=== PATIENT | female | born 1965 | race African-American/Black ===

== ENCOUNTER 2016-08-23 10:13 | Inpatient (IN) | payer OTHER ==
[2016-08-23 10:39] VITALS: BMI 30.7
--- NOTE | 2016-08-23 11:11 | HP ---
CIWA Score - CIWA Score Nausea/Vomitin Muscle Tremors: 3 Anxiety: 3 Agitation: 3 Paroxysmal Sweats: 2 Orientation: 0-Oriented Tacttile Disturbances: 2-Mild Itch/Numbness/Burn Auditory Disturbances: 2-Mild Harshness/Frighten Visual Disturbances: 2-Mild Sensitivity Headache: 2-Mild CIWA-Ar Total Score: 22 Admission ROS [facility] - HPI Chief Complaint: i need help to stop drinking alcohol,cocaine,heroin abused,withdrawal symptom, last detox 2012 asthma mmtp 40 mgs/day,last medicated today nicotine dependence sobriety longest 3 years Allergies/Adverse Reactions: Allergies Allergy/AdvReac Type Severity Reaction Status Date / Time Penicillins Allergy Severe Difficulty Verified 08/23/16 10:44 Breathing shellfish derived Allergy Severe Difficulty Verified 08/23/16 10:44 Breathing History of Present Illness: this 51 years old female with alcohol,cocaine dependence,heroin abused for detox as mentioned Exam Limitations: No Limitations - Ebola screening Have you traveled outside of the country in the last 21 days: No Have you had contact with anyone from an Ebola affected area: No Have you been sick,other than usual withdrawal symptoms: No - Review of Systems Constitutional: Malaise, Night Sweats, Changes in sleep EENT: reports: Tearing, Nose Congestion Respiratory: reports: Other (asthma) Cardiac: reports: No Symptoms Reported GI: reports: Diarrhea, Nausea, Vomiting, Abdominal cramping : reports: No Symptoms Reported Musculoskeletal: reports: Back Pain, Joint Pain, Muscle Pain Integumentary: reports: Dryness Neuro: reports: Headache, Tremors Endocrine: reports: No Symptoms Reported Hematology: reports: No Symptoms Reported Psychiatric: reports: No Sypmtoms Reported Patient History - Patient Medical History Hx Anemia: No Hx Asthma: Yes (on albuterol inhaler) Hx Chronic Obstructive Pulmonary Disease (COPD): No Hx Cancer: No Hx Cardiac Disorders: No Hx Congestive Heart Failure: No Hx Hypertension: No Hx Hypercholesterolemia: No Hx Pacemaker: No HX Cerebrovascular Accident: No Hx Seizures: No Hx Dementia: No Hx Diabetes: No Hx Gastrointestinal Disorders: No Hx Liver Disease: No Hx Genitourinary Disorders: No Hx Sexually Transmitted Disorders: No Hx Renal Disease (ESRD): No Hx Thyroid Disease: No Hx Human Immunodeficiency Virus (HIV): No (last 2014 negative) Hx Hepatitis C: No Hx Depression: No Hx Suicide Attempt: No Hx Bipolar Disorder: No Hx Schizophrenia: No Other Medical History: no suicidal,no homicidal,lichen planus both legs - Patient Surgical History Past Surgical History: No - PPD History Previous Implant?: Yes Documented Results: Negative w/o proof Implanted On Prior R Admission?: No PPD to be Administered?: Yes - Reproductive History Patient is a Female of Child Bearing Age (11 -55 yrs old): Yes Patient : No - Smoking Cessation Smoking history: Current every day smoker Have you smoked in the past 12 months: Yes Aproximately how many cigarettes per day: 2 Hx Chewing Tobacco Use: No Initiated information on smoking cessation: Yes 'Breaking Loose' booklet given: 08/23/16 - Substance & Tx. History Hx Alcohol Use: Yes Hx Substance Use: Yes Substance Use Type: Alcohol, Cocaine, Heroin Hx Substance Use Treatment: Yes (2013 did not recall the location) - Substances Abused Alcohol Route: Oral Frequency: Daily Amount used: 1/2 [place]/ 5 BEERS Age of first use: 14 Date of Last Use: 08/22/16 Cocaine Route: Smoking Frequency: Daily Amount used: $20 Age of first use: 23 Date of Last Use: 08/21/16 Heroin Route: Inhalation Frequency: 3-6 times per week Amount used: 2-4 BAGS Age of first use: 18 Date of Last Use: 08/22/16 Family Disease History - Family Disease History Family Disease History: Other: Father (alcohol), Mother (alcohol) Admission Physical Exam [facility] - Vital Signs Vital Signs: Vital Signs - 24 hr 08/23/16 10:32 Temperature 96.4 F L Pulse Rate 68 Respiratory 18 Rate Blood Pressure 140/91 - Physical General Appearance: Yes: Moderate Distress, Tremorous, Irritable, Sweating, Anxious HEENTM: Yes: Nasal Congestion, Rhinorrhea Respiratory: Yes: Lungs Clear Neck: Yes: Within Normal Limits Breast: Yes: Breast Exam Deferred Cardiology: Yes: Within Normal Limits, Regular Rhythm, Regular Rate, S1, S2 Abdominal: Yes: Within Normal Limits, Normal Bowel Sounds, Non Tender, Flat, Soft Genitourinary: Yes: Within Normal Limits Back: Yes: Muscle Spasm Musculoskeletal: Yes: Back pain, Muscle Pain Extremities: Yes: Tremors Neurological: Yes: stone circular 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 II-XII NML intact, Fully Oriented, Alert, Motor Strength 5/5 Integumentary: Yes: Dry Lymphatic: Yes: Within Normal Limits - Diagnostic (1) Alcohol dependence with uncomplicated withdrawal Current Visit: Yes Status: Acute (2) Cocaine dependence Current Visit: Yes Status: Acute (3) Methadone maintenance therapy patient Current Visit: Yes Status: Acute (4) Heroin abuse Current Visit: Yes Status: Acute (5) Asthma Current Visit: Yes Status: Acute (6) Lichen planus Current Visit: Yes Status: Acute Cleared for Admission [facility] - Detox or Rehab [facility] Level of Care: Medically Managed Detox Regimen/Protocol: Librium [facility] Breath Alcohol Content Breath Alcohol Content: 0 Urine Pregancy Test - Result Urine Test Results: Negative- NO Line Present Urine Drug Screen - Results Drug Screen Negative: No Urine Drug Screen Results: LUIS ENRIQUE-Cocaine, OPI-Opiates, MTD-Methadone
[2016-08-23] MEDS ORDERED: P-EPHED 60MG/TRIPROLIDI 2.5MG TABLET PO PRN (11:29)
[2016-08-23] MEDS ORDERED: hydrOXYzine PAMOATE 50 MG CAPSULE (FP) PO PRN (11:29)
[2016-08-23] MEDS ORDERED: guaiFENesin/D-METHORPHAN HB 10 ML UNIT-DOSE CUPS PO PRN (11:29)
[2016-08-23] MEDS ORDERED: diphenhydrAMINE HCL 50 MG CAPSULE PO PRN (11:29)
[2016-08-23] MEDS ORDERED: MAGNESIUM HYDROX 2400MG/30ML ORAL SUSPENSION 30 ML CUP PO PRN (11:29)
[2016-08-23] MEDS ORDERED: LOPERAMIDE HCL 2 MG CAPSULE PO PRN (11:29)
[2016-08-23] MEDS ORDERED: ACETAMINOPHEN 325 MG TABLET (FP) PO PRN (11:29)
[2016-08-23] MEDS ORDERED: MAG HYDROX/AL HYDROX/SIMETH 30 ML UNIT-DOSE CUP PO PRN (11:29)
[2016-08-23] MEDS ORDERED: IBUPROFEN 400 MG TABLET (FP) PO PRN (11:29)
[2016-08-23] MEDS ORDERED: MENTHOL/PHENOL 1 EACH UD MM PRN (11:29)
[2016-08-23] MEDS ORDERED: MAGNESIUM CITRATE 300 ML BOTTLE PO PRN (11:29)
[2016-08-23] MEDS ORDERED: chlordiazePOXIDE HCL 25 MG CAPSULE PO PRN (11:29)
[2016-08-23] MEDS ORDERED: ALBUTEROL SO4 6.7 GM HFA INHALER IH PRN (11:32)
[2016-08-23] MEDS ORDERED: chlordiazePOXIDE HCL 25 MG CAPSULE PO ONE (12:03)
[2016-08-23 15:02] LABS: HIV 1 & 2 AB NEGATIVE; HIV 1 AGp24 NEGATIVE
[2016-08-23] MEDS: chlordiazePOXIDE HCL 25 MG CAPSULE PO SCH ×2 (17:46→22:28)
[2016-08-23 19:58] LABS: URINE APPEARANCE SLCLOUDY; URINE BILIRUBIN NEGATIVE (NEGATIVE); URINE BLOOD NEGATIVE (NEGATIVE); URINE COLOR LTYELLOW; URINE GLUCOSE (UA) NEGATIVE (NEGATIVE); URINE KETONE NEGATIVE (NEGATIVE); URINE NITRITE NEGATIVE (NEGATIVE); URINE PROTEIN NEGATIVE (NEGATIVE); URINE UROBILINOGEN NEGATIVE E.U./dl (0.2-1.0)
[2016-08-23 20:01] LABS: URINE LEUK ESTERASE 1+ (NEGATIVE)
[2016-08-23 20:08] LABS: CALCIUM OXALATE CRYSTALS FEW /hpf (NONE SEEN); URINE MUCUS RARE; URINE RBC 2 /hpf (0-3); URINE WBC 3 /hpf (3-5)
[2016-08-23] MEDS: THIAMINE HCL 100 MG TABLET (FP) PO SCH (22:27)
[2016-08-23] MEDS: MINERAL OIL/PETROLAT/WATER TOPICAL CREAM 113 GM JAR TP SCH (22:28)
[2016-08-24] MEDS: chlordiazePOXIDE HCL 25 MG CAPSULE PO SCH ×4 (06:09→22:38)
[2016-08-24] MEDS: METHADONE HCL 40 MG DISPERSABLE TABLET PO SCH (06:09)
[2016-08-24 10:35] LABS: MCH 28.8 pg (25.7-33.7); MEAN CELL VOLUME 87.3 fl (80-96); MEAN PLT VOLUME 9.9 fl (7.5-11.1); PLATELET COUNT 195 K/MM3 (134-434); RDW 14.3 % (11.6-15.6); WHITE BLOOD COUNT 6.2 K/mm3 (4.0-10.0)
--- NOTE | 2016-08-24 10:35 | EKG ---
Test Reason : Blood Pressure : / mmHG Vent. Rate : 062 BPM Atrial Rate : 062 BPM P-R Int : 142 ms QRS Dur : 074 ms QT Int : 414 ms P-R-T Axes : 070 050 036 degrees QTc Int : 420 ms NORMAL SINUS RHYTHM NORMAL ECG NO PREVIOUS ECGS AVAILABLE Confirmed by KEVIN VEE MD ([id number]) on 08/24/2016 10:35:15 AM Referred By: Vel Palmer Confirmed By:KEVIN VEE MD
[2016-08-24 10:48] LABS: ANION GAP 8 (8-16); CALCIUM 9.2 mg/dL (8.5-10.1); CO2 31 mmol/L (21-32); GLUCOSE,RANDOM 91 mg/dL (74-106)
[2016-08-24] MEDS: PRENATAL VITAMINS W/ FOLIC ACID TABLET (FP) PO SCH (10:49)
[2016-08-24] MEDS: MINERAL OIL/PETROLAT/WATER TOPICAL CREAM 113 GM JAR TP SCH ×2 (10:49→22:38)
[2016-08-24 10:52] LABS: ALK PHOS 121 U/L (45-117); BILIRUBIN,TOTAL 0.3 mg/dL (0.2-1.0); CREATININE 0.9 mg/dL (0.55-1.02); SGOT/AST 15 U/L (15-37); SGPT/ALT 23 U/L (12-78); TOT PROT 7.5 g/dl (6.4-8.2)
--- NOTE | 2016-08-24 13:37 | PN ---
S CIWA - CIWA Score Nausea/Vomitin Muscle Tremors: 3 Anxiety: 3 Agitation: 3 Paroxysmal Sweats: 2 Orientation: 0-Oriented Tacttile Disturbances: 1-Very Mild Itch/Numbness Auditory Disturbances: 1-Very Mild Visual Disturbances: 1-Very Mild Sensitivity Headache: 2-Mild CIWA-Ar Total Score: 19 S Progress Note (SOAP) Subjective: ALERT,IRRITABLE,ANXIOUS,INTERRUPTED SLEEP,TREMOR,PAIN IN THE BODY Objective: 08/24/16 13:35 Vital Signs Temperature 98.4 F 08/24/16 09:48 Pulse Rate 83 08/24/16 09:48 Respiratory Rate 18 08/24/16 09:48 Blood Pressure 109/67 08/24/16 09:48 O2 Sat by Pulse Oximetry (%) 08/24/16 13:35 EKG NSR 08/24/16 13:35 Laboratory Last Values WBC 6.2 K/mm3 (4.0-10.0) 08/24/16 06:00 RBC 4.40 M/mm3 (3.60-5.2) 08/24/16 06:00 Hgb 12.7 GM/dL (10.7-15.3) 08/24/16 06:00 Hct 38.4 % (32.4-45.2) 08/24/16 06:00 MCV 87.3 fl (80-96) 08/24/16 06:00 MCHC 33.0 g/dl (32.0-36.0) 08/24/16 06:00 RDW 14.3 % (11.6-15.6) 08/24/16 06:00 Plt Count 195 K/MM3 (134-434) 08/24/16 06:00 MPV 9.9 fl (7.5-11.1) 08/24/16 06:00 Sodium 142 mmol/L (136-145) 08/24/16 06:00 Potassium 4.3 mmol/L (3.5-5.1) 08/24/16 06:00 Chloride 103 mmol/L (98-107) 08/24/16 06:00 Carbon Dioxide 31 mmol/L (21-32) 08/24/16 06:00 Anion Gap 8 (8-16) 08/24/16 06:00 BUN 9 mg/dL (7-18) 08/24/16 06:00 Creatinine 0.9 mg/dL (0.55-1.02) 08/24/16 06:00 Creat Clearance w eGFR > 60 (>60) 08/24/16 06:00 Random Glucose 91 mg/dL (74-106) 08/24/16 06:00 Calcium 9.2 mg/dL (8.5-10.1) 08/24/16 06:00 Total Bilirubin 0.3 mg/dL (0.2-1.0) 08/24/16 06:00 AST 15 U/L (15-37) 08/24/16 06:00 ALT 23 U/L (12-78) 08/24/16 06:00 Alkaline Phosphatase 121 U/L (45-117) H 08/24/16 06:00 Total Protein 7.5 g/dl (6.4-8.2) 08/24/16 06:00 Albumin 4.0 g/dl (3.4-5.0) 08/24/16 06:00 Urine Color Ltyellow 08/23/16 15:00 Urine Appearance Slcloudy 08/23/16 15:00 Urine pH 6.0 (5.0-8.0) 08/23/16 15:00 Ur Specific [place] 1.011 (1.001-1.035) 08/23/16 15:00 Urine Protein Negative (NEGATIVE) 08/23/16 15:00 Urine Glucose (UA) Negative (NEGATIVE) 08/23/16 15:00 Urine Ketones Negative (NEGATIVE) 08/23/16 15:00 Urine Blood Negative (NEGATIVE) 08/23/16 15:00 Urine Nitrite Negative (NEGATIVE) 08/23/16 15:00 Urine Bilirubin Negative (NEGATIVE) 08/23/16 15:00 Urine Urobilinogen Negative E.U./dl (0.2-1.0) 08/23/16 15:00 Ur Leukocyte Esterase 1+ (NEGATIVE) H 08/23/16 15:00 Urine RBC 2 /hpf (0-3) 08/23/16 15:00 Urine WBC 3 /hpf (3-5) 08/23/16 15:00 Ur Epithelial Cells Moderate /hpf (FEW) 08/23/16 15:00 Calcium Oxalate Crystal Few /hpf (NONE SEEN) 08/23/16 15:00 Amorphous Urates Few /hpf (NONE SEEN) 08/23/16 15:00 Urine Mucus Rare 08/23/16 15:00 RPR Titer Nonreactive (NONREACTIVE) 08/24/16 06:00 HIV 1&2 Antibody Screen Negative 08/23/16 11:00 HIV P24 Antigen Negative 08/23/16 11:00 Assessment: 08/24/16 13:36 WITHDRAWAL SYMPTOM Plan: CONTINUE DETOX
[2016-08-24] MEDS: THIAMINE HCL 100 MG TABLET (FP) PO SCH (22:38)
[2016-08-25] MEDS: METHADONE HCL 40 MG DISPERSABLE TABLET PO SCH (06:02)
[2016-08-25] MEDS: chlordiazePOXIDE HCL 25 MG CAPSULE PO SCH ×2 (06:02→10:41)
[2016-08-25] MEDS: MINERAL OIL/PETROLAT/WATER TOPICAL CREAM 113 GM JAR TP SCH ×2 (10:41→22:23)
[2016-08-25] MEDS: PRENATAL VITAMINS W/ FOLIC ACID TABLET (FP) PO SCH (10:41)
--- NOTE | 2016-08-25 13:31 | PN ---
S CIWA - CIWA Score Nausea/Vomitin Muscle Tremors: 3 Anxiety: 3 Agitation: 2 Paroxysmal Sweats: 1-Minimal Palms Moist Orientation: 0-Oriented Tacttile Disturbances: 1-Very Mild Itch/Numbness Auditory Disturbances: 1-Very Mild Visual Disturbances: 1-Very Mild Sensitivity Headache: 2-Mild CIWA-Ar Total Score: 17 [facility] Progress Note (SOAP) Subjective: ALERT,IRRITABLE,ANXIOUS,INTERRUPTED SLEEP,TREMOR,PAIN IN THE BACK Objective: 08/25/16 13:31 Vital Signs Temperature 98.6 F 08/25/16 10:34 Pulse Rate 86 08/25/16 10:34 Respiratory Rate 20 08/25/16 10:34 Blood Pressure 116/67 08/25/16 10:34 O2 Sat by Pulse Oximetry (%) Assessment: 08/25/16 13:31 WITHDRAWAL SYMPTOM Plan: CONTINUE DETOX
[2016-08-25] MEDS: chlordiazePOXIDE 5 MG CAPSULE PO SCH ×2 (17:45→22:22)
[2016-08-25] MEDS: THIAMINE HCL 100 MG TABLET (FP) PO SCH (22:22)
[2016-08-26] MEDS: METHADONE HCL 40 MG DISPERSABLE TABLET PO SCH (06:09)
[2016-08-26] MEDS: chlordiazePOXIDE 5 MG CAPSULE PO SCH ×2 (06:10→10:28)
[2016-08-26] MEDS: MINERAL OIL/PETROLAT/WATER TOPICAL CREAM 113 GM JAR TP SCH ×2 (10:28→22:31)
[2016-08-26] MEDS: PRENATAL VITAMINS W/ FOLIC ACID TABLET (FP) PO SCH (10:28)
--- NOTE | 2016-08-26 11:12 | PN ---
[facility]HS Progress Note (SOAP) Subjective: sweats interrupted sleep Objective: 08/26/16 11:11 Vital Signs Temperature 98.1 F 08/26/16 10:27 Pulse Rate 90 08/26/16 10:27 Respiratory Rate 18 08/26/16 10:27 Blood Pressure 116/68 08/26/16 10:27 O2 Sat by Pulse Oximetry (%) Laboratory Tests 08/23/16 08/23/16 08/24/16 11:00 15:00 06:00 WBC 6.2 RBC 4.40 Hgb 12.7 Hct 38.4 MCV 87.3 MCHC 33.0 RDW 14.3 Plt Count 195 MPV 9.9 Sodium Potassium Chloride Carbon Dioxide Anion Gap BUN Creatinine Creat Clearance w eGFR Random Glucose Calcium Total Bilirubin AST ALT Alkaline Phosphatase Total Protein Albumin Urine Color Ltyellow Urine Appearance Slcloudy Urine pH 6.0 Ur Specific [place] 1.011 Urine Protein Negative Urine Glucose (UA) Negative Urine Ketones Negative Urine Blood Negative Urine Nitrite Negative Urine Bilirubin Negative Urine Urobilinogen Negative Ur Leukocyte Esterase 1+ H Urine RBC 2 Urine WBC 3 Ur Epithelial Cells Moderate Calcium Oxalate Crystal Few Amorphous Urates Few Urine Mucus Rare RPR Titer HIV 1&2 Antibody Screen Negative HIV P24 Antigen Negative 08/24/16 08/24/16 06:00 06:00 WBC RBC Hgb Hct MCV MCHC RDW Plt Count MPV Sodium 142 Potassium 4.3 Chloride 103 Carbon Dioxide 31 Anion Gap 8 BUN 9 Creatinine 0.9 Creat Clearance w eGFR > 60 Random Glucose 91 Calcium 9.2 Total Bilirubin 0.3 AST 15 ALT 23 Alkaline Phosphatase 121 H Total Protein 7.5 Albumin 4.0 Urine Color Urine Appearance Urine pH Ur Specific [place] Urine Protein Urine Glucose (UA) Urine Ketones Urine Blood Urine Nitrite Urine Bilirubin Urine Urobilinogen Ur Leukocyte Esterase Urine RBC Urine WBC Ur Epithelial Cells Calcium Oxalate Crystal Amorphous Urates Urine Mucus RPR Titer Nonreactive HIV 1&2 Antibody Screen HIV P24 Antigen awake/alert ambulating no acute distress Assessment: 08/26/16 11:11 withdrawal sx Plan: continue detox increase fluids d/c in am
[2016-08-26] MEDS: chlordiazePOXIDE HCL 10 MG CAPSULE PO SCH ×2 (17:19→22:31)
[2016-08-26] MEDS: THIAMINE HCL 100 MG TABLET (FP) PO SCH (22:31)
[2016-08-27] MEDS: chlordiazePOXIDE HCL 10 MG CAPSULE PO SCH (06:05)
[2016-08-27] MEDS: METHADONE HCL 40 MG DISPERSABLE TABLET PO SCH (06:05)
--- NOTE | 2016-08-27 09:33 | DS ---
[facility] Detox Discharge Summary Admission Date: 08/23/16 Discharge Date: 08/27/16 - History Present History: Alcohol Dependence, Cocaine Dependence, Opioid Dependence - Physical Exam Results Vital Signs: Vital Signs Temperature 98.5 F 08/27/16 06:57 Pulse Rate 70 08/27/16 06:57 Respiratory Rate 18 08/27/16 06:57 Blood Pressure 136/89 08/27/16 06:57 O2 Sat by Pulse Oximetry (%) - Treatment Hospital Course: Detox Protocol Followed, Detoxed Safely, Responded well, Discharged Condition Good - Medication Discharge Medications: Ambulatory Orders Albuterol Sulfate Inhaler - [Ventolin Hfa Inhaler -] 2 inh PO Q4H PRN 08/23/16 - Diagnosis (1) Alcohol dependence with uncomplicated withdrawal Current Visit: Yes Status: Chronic (2) Asthma Current Visit: Yes Status: Chronic Qualifiers: Asthma severity: mild intermittent (3) Cocaine dependence Current Visit: Yes Status: Chronic Qualifiers: Complication of substance-induced condition: uncomplicated (4) Lichen planus Current Visit: Yes Status: Acute (5) Methadone maintenance therapy patient Current Visit: Yes Status: Chronic - AMA Did Patient Leave Against Medical Advice: No
[2016-08-27 09:50] VITALS: BP 109/61; PULSE 91; TEMP 98.1
== END 2016-08-27 09:32 | disposition home or self-care (01) | DRG 773 ==
LOC: YASAS 10:13 → Y6N 11:27
PROVIDERS: ADMIT Internal Medicine; ATTEND Internal Medicine
PROC: HZ2ZZZZ Detoxification Services for Substance Abuse Treatment (ICD-10-PCS; principal; 2016-08-23)
DX: F10.230 Alcohol dependence with withdrawal, uncomplicated (principal); F11.20 Opioid dependence, uncomplicated; F14.20 Cocaine dependence, uncomplicated; F17.210 Nicotine dependence, cigarettes, uncomplicated; J45.20 Mild intermittent asthma, uncomplicated; L43.9 Lichen planus, unspecified
CPT/HCPCS: 36415; 80053; 81003; 81015; 85027; 86593; 87389; 93005; 93010

== ENCOUNTER 2017-09-05 10:16 | Inpatient (IN) | payer OTHER ==
[2017-09-05 12:50] VITALS: BMI 29.9
--- NOTE | 2017-09-05 15:28 | HP ---
COWS - Scale Resting Pulse: 0= [place] 80 or Below Sweatin= Chills/Flushing Restless Observation: 1= Difficult to Sit Still Pupil Size: 1= Pupils >than Normal Bone or Joint Aches: 2= Severe Diffuse Aches Runny Nose/ Eye Tearin= Nasal Congestion GI Upset > 30mins: 2= Nausea/Diarrhea Tremor Observation: 1= Tremor [place], Not Seen Yawning Observation: 0= None Anxiety or Irritability: 2=Irritable/Anxious Goose Flesh Skin: 0=Smooth Skin COWS Score: 11 CIWA Score - CIWA Score Nausea/Vomitin Muscle Tremors: 2 Anxiety: 3 Agitation: 2 Paroxysmal Sweats: 3 Orientation: 0-Oriented Tacttile Disturbances: 2-Mild Itch/Numbness/Burn Auditory Disturbances: 0-None Visual Disturbances: 0-None Headache: 0-None Present CIWA-Ar Total Score: 15 Admission ROS [facility] Chief Complaint: 52 y/o f pt with h/o heroin and alcohol dep. Allergies/Adverse Reactions: Allergies Allergy/AdvReac Type Severity Reaction Status Date / Time Penicillins Allergy Severe Difficulty Verified 09/05/17 15:14 Breathing shellfish derived Allergy Severe Difficulty Verified 09/05/17 15:14 Breathing History of Present Illness: pt with longstanding h/o alcohol and heroin dep seeking detox, - Ebola screening Have you traveled outside of the country in the last 21 days: No (N) Have you had contact with anyone from an Ebola affected area: No Have you been sick,other than usual withdrawal symptoms: No Do you have a fever: No - Review of Systems Constitutional: Malaise, Night Sweats EENT: reports: Nose Congestion Respiratory: reports: Wheezing Cardiac: reports: No Symptoms Reported GI: reports: Poor Appetite, Abdominal cramping : reports: No Symptoms Reported Musculoskeletal: reports: No Symptoms Reported Integumentary: reports: Rash (eczema) Neuro: reports: Other (light headed) Endocrine: reports: No Symptoms Reported Psychiatric: reports: No Sypmtoms Reported Other Systems: Reviewed and Negative Patient History - Patient Medical History Hx Anemia: No Hx Asthma: Yes (on albuterol inhaler) Hx Chronic Obstructive Pulmonary Disease (COPD): No Hx Cancer: No Hx Cardiac Disorders: No Hx Congestive Heart Failure: No Hx Hypertension: No Hx Hypercholesterolemia: No Hx Pacemaker: No HX Cerebrovascular Accident: No Hx Seizures: No Hx Dementia: No Hx Diabetes: No Hx Gastrointestinal Disorders: No Hx Liver Disease: No Hx Genitourinary Disorders: No Hx Sexually Transmitted Disorders: No Hx Renal Disease (ESRD): No Hx Thyroid Disease: No Hx Human Immunodeficiency Virus (HIV): No (last 2014 negative) Hx Hepatitis C: No Hx Depression: No Hx Suicide Attempt: No Hx Bipolar Disorder: No Hx Schizophrenia: No - Patient Surgical History Past Surgical History: No - PPD History Date: 08/25/16 - Reproductive History Patient is a Female of Child Bearing Age (11 -55 yrs old): Yes Last Menstrual Period: 08/31/96 LMP comment: early menopause Patient : No - Smoking Cessation Smoking history: Current every day smoker Have you smoked in the past 12 months: Yes Aproximately how many cigarettes per day: 2 Hx Chewing Tobacco Use: No Initiated information on smoking cessation: Yes 'Breaking Loose' booklet given: 09/05/17 - Substance & Tx. History Hx Alcohol Use: Yes Hx Substance Use: Yes Substance Use Type: Alcohol, Heroin Hx Substance Use Treatment: Yes - Substances Abused Heroin Route: Inhalation Frequency: Daily Amount used: 3-4 BAGS Age of first use: 18 Date of Last Use: 09/05/17 Alcohol Route: Oral Frequency: Daily Amount used: 4-5 NIPS Age of first use: 14 Date of Last Use: 09/05/17 Family Disease History - Family Disease History Family Disease History: Other: Father (alcohol), Mother (alcohol) Admission Physical Exam [facility] - Vital Signs Vital Signs: Vital Signs - 24 hr 09/05/17 12:41 Temperature 97.6 F Pulse Rate 63 Respiratory 20 Rate Blood Pressure 126/71 52 y/o f pt aox3 in nad ambulating , cooperative with exam . - Physical General Appearance: Yes: No Apparent Distress, Appropriately Dressed, Anxious HEENTM: Yes: EOMI, Hearing grossly Normal, Normal ENT Inspection, Nasal Congestion, Muffled/Hoarse Voice Respiratory: Yes: Chest Non-Tender, Lungs Clear, Normal Breath Sounds, No Respiratory Distress Neck: Yes: Supple Breast: Yes: Breast Exam Deferred Cardiology: Yes: Regular Rhythm, Regular Rate, S1, S2 Abdominal: Yes: Normal Bowel Sounds, Non Tender, Flat, Soft, Increased Bowel Sounds Genitourinary: Yes: Within Normal Limits Back: Yes: Decreased Range of Motion Musculoskeletal: Yes: Muscle Pain Extremities: Yes: Tremors Neurological: Yes: 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 NML intact, Fully Oriented, Alert, Motor Strength 5/5 Integumentary: Yes: Rash (eczema left elbow) Lymphatic: Yes: Within Normal Limits - Diagnostic (1) Opioid dependence Current Visit: Yes Status: Chronic Qualifiers: Substance use status: uncomplicated Qualified Code(s): F11.20 - Opioid dependence, uncomplicated (2) Eczema Current Visit: Yes Status: Chronic (3) Alcohol dependence with uncomplicated withdrawal Current Visit: No Status: Chronic (4) Asthma Current Visit: No Status: Chronic Qualifiers: Asthma severity: mild Asthma persistence: intermittent Asthma complication type: uncomplicated Qualified Code(s): J45.20 - Mild intermittent asthma, uncomplicated Cleared for Admission [facility] - Detox or Rehab [facility] Level of Care: Medically Managed Detox Regimen/Protocol: Methadone/Librium [facility] Breath Alcohol Content Breath Alcohol Content: 0 Urine Pregancy Test - Result Urine Test Results: Negative- NO Line Present Urine Drug Screen - Results Drug Screen Negative: No Urine Drug Screen Results: OPI-Opiates
[2017-09-05] MEDS ORDERED: P-EPHED 60MG/TRIPROLIDI 2.5MG TABLET PO PRN (15:45)
[2017-09-05] MEDS ORDERED: MENTHOL/PHENOL 1 EACH UD MM PRN (15:45)
[2017-09-05] MEDS ORDERED: chlordiazePOXIDE HCL 25 MG CAPSULE PO PRN (15:45)
[2017-09-05] MEDS ORDERED: hydrOXYzine PAMOATE 25 MG CAPSULE (FP) PO PRN (15:45)
[2017-09-05] MEDS ORDERED: IBUPROFEN 400 MG TABLET (FP) PO PRN (15:45)
[2017-09-05] MEDS ORDERED: guaiFENesin/D-METHORPHAN HB 10 ML UNIT-DOSE CUPS PO PRN (15:45)
[2017-09-05] MEDS ORDERED: MAGNESIUM CITRATE 300 ML BOTTLE PO PRN (15:45)
[2017-09-05] MEDS ORDERED: MAG HYDROX/AL HYDROX/SIMETH 30 ML UNIT-DOSE CUP PO PRN (15:45)
[2017-09-05] MEDS ORDERED: MAGNESIUM HYDROX 2400MG/30ML ORAL SUSPENSION 30 ML CUP PO PRN (15:45)
[2017-09-05] MEDS ORDERED: LOPERAMIDE HCL 2 MG CAPSULE PO PRN (15:45)
[2017-09-05] MEDS ORDERED: NICOTINE POLACRILEX 4 MG GUM BC PRN (15:45)
[2017-09-05] MEDS ORDERED: METHADONE HCL 10 MG TABLET (FOR DETOX USE ONLY) PO ONE ×2 (16:30→23:00)
[2017-09-05] MEDS: chlordiazePOXIDE HCL 25 MG CAPSULE PO SCH ×2 (17:51→22:19)
[2017-09-05] MEDS: THIAMINE HCL 100 MG TABLET (FP) PO SCH (22:20)
[2017-09-05 22:55] LABS: URINE APPEARANCE CLEAR; URINE BILIRUBIN NEGATIVE (NEGATIVE); URINE BLOOD NEGATIVE (NEGATIVE); URINE COLOR LTYELLOW; URINE GLUCOSE (UA) NEGATIVE (NEGATIVE); URINE KETONE NEGATIVE (NEGATIVE); URINE LEUK ESTERASE NEGATIVE (NEGATIVE); URINE NITRITE NEGATIVE (NEGATIVE); URINE PROTEIN NEGATIVE (NEGATIVE); URINE UROBILINOGEN NEGATIVE mg/dL (0.2-1.0)
[2017-09-06] MEDS: chlordiazePOXIDE HCL 25 MG CAPSULE PO SCH ×4 (05:59→22:35)
[2017-09-06] MEDS ORDERED: METHADONE HCL 10 MG TABLET (FOR DETOX USE ONLY) PO SCH (10:00)
[2017-09-06 10:01] LABS: HEMOGLOBIN 12.4 GM/dL (10.7-15.3); MCH 28.1 pg (25.7-33.7); MCHC 32.6 g/dl (32.0-36.0); MEAN CELL VOLUME 86.4 fl (80-96); MEAN PLT VOLUME 9.6 fl (7.5-11.1); PLATELET COUNT 181 K/MM3 (134-434); RBC 4.39 M/mm3 (3.60-5.2); RDW 14.2 % (11.6-15.6); WHITE BLOOD COUNT 7.2 K/mm3 (4.0-10.0)
[2017-09-06 10:02] LABS: CHLORIDE 107 mmol/L (98-107); POTASSIUM 3.9 mmol/L (3.5-5.1); SODIUM 141 mmol/L (136-145)
[2017-09-06 10:12] LABS: ALBUMIN 3.9 g/dl (3.4-5.0); ALK PHOS 98 U/L (45-117); ANION GAP 6 (8-16); BILIRUBIN,TOTAL 0.4 mg/dL (0.2-1.0); BLOOD UREA NITROGEN 9 mg/dL (7-18); CALCIUM 8.6 mg/dL (8.5-10.1); CO2 28 mmol/L (21-32); CREATININE 0.9 mg/dL (0.55-1.02); GLUCOSE,RANDOM 123 mg/dL (74-106); SGOT/AST 14 U/L (15-37); SGPT/ALT 24 U/L (12-78); TOT PROT 7.4 g/dl (6.4-8.2)
[2017-09-06] MEDS: PRENATAL VITAMINS W/ FOLIC ACID TABLET (FP) PO SCH (10:49)
[2017-09-06] MEDS: NICOTINE 21 MG/24 HOURS TOPICAL PATCH TD SCH (10:50)
[2017-09-06] MEDS: HYDROCORTISONE 1% TOPICAL CREAM 30 GM TUBE TP PRN (10:50)
[2017-09-06] MEDS: ACETAMINOPHEN 325 MG TABLET (FP) PO PRN ×2 (10:51→18:01)
[2017-09-06] MEDS ORDERED: FLU VACCINE QUAD 60 MCG/0.5 ML (MDV 17-18) IM ONE (12:00)
--- NOTE | 2017-09-06 14:24 | PN ---
[facility] CIWA - CIWA Score Nausea/Vomitin Muscle Tremors: 4-Moderate,w/Arms Extend Anxiety: 1-Mildly Anxious Agitation: 0-Normal Activity Paroxysmal Sweats: 3 Orientation: 0-Oriented Tacttile Disturbances: 1-Very Mild Itch/Numbness Auditory Disturbances: 0-None Visual Disturbances: 0-None Headache: 0-None Present CIWA-Ar Total Score: 12 S COWS - Scale Resting Pulse: 0= [place] 80 or Below Sweatin= Chills/Flushing Restless Observation: 1= Difficult to Sit Still Pupil Size: 0= Normal to Room Light Bone or Joint Aches: 1= Mild Discomfort Runny Nose/ Eye Tearin= None GI Upset > 30mins: 5=Frequent Vomit/Diarrhea Tremor Observation of Outstretched Hands: 1= Tremor [place], Not Seen Yawning Observation: 2= >3x During Session Anxiety or Irritability: 1=Feels Anxious/Irritable Goose Flesh Skin: 0=Smooth Skin COWS Score: 12 [facility] Progress Note (SOAP) Subjective: Diarrhea, nausea, interrupted sleep, chills, anxious Objective: 09/06/17 14:22 Last Vital Signs Temp Pulse Resp BP Pulse Ox 98.2 F 73 18 102/60 09/06/17 10:32 09/06/17 10:32 09/06/17 10:32 09/06/17 10:32 Laboratory Last Values WBC 7.2 K/mm3 (4.0-10.0) 09/06/17 06:10 RBC 4.39 M/mm3 (3.60-5.2) 09/06/17 06:10 Hgb 12.4 GM/dL (10.7-15.3) 09/06/17 06:10 Hct 38.0 % (32.4-45.2) 09/06/17 06:10 MCV 86.4 fl (80-96) 09/06/17 06:10 MCH 28.1 pg (25.7-33.7) 09/06/17 06:10 MCHC 32.6 g/dl (32.0-36.0) 09/06/17 06:10 RDW 14.2 % (11.6-15.6) 09/06/17 06:10 Plt Count 181 K/MM3 (134-434) 09/06/17 06:10 MPV 9.6 fl (7.5-11.1) 09/06/17 06:10 Sodium 141 mmol/L (136-145) 09/06/17 06:10 Potassium 3.9 mmol/L (3.5-5.1) 09/06/17 06:10 Chloride 107 mmol/L (98-107) 09/06/17 06:10 Carbon Dioxide 28 mmol/L (21-32) 09/06/17 06:10 Anion Gap 6 (8-16) L 09/06/17 06:10 BUN 9 mg/dL (7-18) 09/06/17 06:10 Creatinine 0.9 mg/dL (0.55-1.02) 09/06/17 06:10 Creat Clearance w eGFR > 60 (>60) 09/06/17 06:10 Random Glucose 123 mg/dL (74-106) H 09/06/17 06:10 Calcium 8.6 mg/dL (8.5-10.1) 09/06/17 06:10 Total Bilirubin 0.4 mg/dL (0.2-1.0) D 09/06/17 06:10 AST 14 U/L (15-37) L 09/06/17 06:10 ALT 24 U/L (12-78) 09/06/17 06:10 Alkaline Phosphatase 98 U/L (45-117) 09/06/17 06:10 Total Protein 7.4 g/dl (6.4-8.2) 09/06/17 06:10 Albumin 3.9 g/dl (3.4-5.0) 09/06/17 06:10 Urine Color Ltyellow 09/05/17 Unknown Urine Appearance Clear 09/05/17 Unknown Urine pH 6.0 (5.0-8.0) 09/05/17 Unknown Ur Specific [place] 1.013 (1.001-1.035) 09/05/17 Unknown Urine Protein Negative (NEGATIVE) 09/05/17 Unknown Urine Glucose (UA) Negative (NEGATIVE) 09/05/17 Unknown Urine Ketones Negative (NEGATIVE) 09/05/17 Unknown Urine Blood Negative (NEGATIVE) 09/05/17 Unknown Urine Nitrite Negative (NEGATIVE) 09/05/17 Unknown Urine Bilirubin Negative (NEGATIVE) 09/05/17 Unknown Urine Urobilinogen Negative mg/dL (0.2-1.0) 09/05/17 Unknown Ur Leukocyte Esterase Negative (NEGATIVE) 09/05/17 Unknown RPR Titer Nonreactive (NONREACTIVE) 09/06/17 06:10 Labs noted Assessment: 09/06/17 14:45 AOx3 ambulating no distress withdrawal symptoms Plan: Continue detox Increase fluids Imodium 4mg q6h PRN
[2017-09-06] MEDS: THIAMINE HCL 100 MG TABLET (FP) PO SCH (22:35)
[2017-09-07] MEDS: chlordiazePOXIDE HCL 25 MG CAPSULE PO SCH ×2 (06:00→10:22)
[2017-09-07] MEDS: HYDROCORTISONE 1% TOPICAL CREAM 30 GM TUBE TP PRN (06:09)
[2017-09-07] MEDS ORDERED: METHADONE HCL 5 MG TABLET (FOR DETOX USE ONLY) PO SCH (10:00)
[2017-09-07] MEDS: PRENATAL VITAMINS W/ FOLIC ACID TABLET (FP) PO SCH (10:22)
[2017-09-07] MEDS: NICOTINE 21 MG/24 HOURS TOPICAL PATCH TD SCH (10:23)
--- NOTE | 2017-09-07 11:20 | PN ---
[facility] CIWA - CIWA Score Nausea/Vomitin-No Nausea/No Vomiting Muscle Tremors: 3 Anxiety: 2 Agitation: 3 Paroxysmal Sweats: 1-Minimal Palms Moist Orientation: 0-Oriented Tacttile Disturbances: 0-None Auditory Disturbances: 0-None Visual Disturbances: 0-None Headache: 0-None Present CIWA-Ar Total Score: 9 BHS COWS - Scale Resting Pulse: 0= [place] 80 or Below Sweatin= Chills/Flushing Restless Observation: 1= Difficult to Sit Still Pupil Size: 0= Normal to Room Light Bone or Joint Aches: 1= Mild Discomfort Runny Nose/ Eye Tearin= Nasal Congestion GI Upset > 30mins: 1= Stomach Cramp Tremor Observation of Outstretched Hands: 2= Slight Tremor Visible Yawning Observation: 1= 1-2x During Session Anxiety or Irritability: 1=Feels Anxious/Irritable Goose Flesh Skin: 0=Smooth Skin COWS Score: 9 [facility] Progress Note (SOAP) Subjective: tremor sweat general body ache gi distress Objective: 09/07/17 11:20 Vital Signs Temperature 97.9 F 09/07/17 10:28 Pulse Rate 62 09/07/17 10:28 Respiratory Rate 18 09/07/17 10:28 Blood Pressure 108/71 09/07/17 10:28 O2 Sat by Pulse Oximetry (%) Laboratory Last Values WBC 7.2 K/mm3 (4.0-10.0) 09/06/17 06:10 RBC 4.39 M/mm3 (3.60-5.2) 09/06/17 06:10 Hgb 12.4 GM/dL (10.7-15.3) 09/06/17 06:10 Hct 38.0 % (32.4-45.2) 09/06/17 06:10 MCV 86.4 fl (80-96) 09/06/17 06:10 MCH 28.1 pg (25.7-33.7) 09/06/17 06:10 MCHC 32.6 g/dl (32.0-36.0) 09/06/17 06:10 RDW 14.2 % (11.6-15.6) 09/06/17 06:10 Plt Count 181 K/MM3 (134-434) 09/06/17 06:10 MPV 9.6 fl (7.5-11.1) 09/06/17 06:10 Sodium 141 mmol/L (136-145) 09/06/17 06:10 Potassium 3.9 mmol/L (3.5-5.1) 09/06/17 06:10 Chloride 107 mmol/L (98-107) 09/06/17 06:10 Carbon Dioxide 28 mmol/L (21-32) 09/06/17 06:10 Anion Gap 6 (8-16) L 09/06/17 06:10 BUN 9 mg/dL (7-18) 09/06/17 06:10 Creatinine 0.9 mg/dL (0.55-1.02) 09/06/17 06:10 Creat Clearance w eGFR > 60 (>60) 09/06/17 06:10 Random Glucose 123 mg/dL (74-106) H 09/06/17 06:10 Calcium 8.6 mg/dL (8.5-10.1) 09/06/17 06:10 Total Bilirubin 0.4 mg/dL (0.2-1.0) D 09/06/17 06:10 AST 14 U/L (15-37) L 09/06/17 06:10 ALT 24 U/L (12-78) 09/06/17 06:10 Alkaline Phosphatase 98 U/L (45-117) 09/06/17 06:10 Total Protein 7.4 g/dl (6.4-8.2) 09/06/17 06:10 Albumin 3.9 g/dl (3.4-5.0) 09/06/17 06:10 Urine Color Ltyellow 09/05/17 Unknown Urine Appearance Clear 09/05/17 Unknown Urine pH 6.0 (5.0-8.0) 09/05/17 Unknown Ur Specific [place] 1.013 (1.001-1.035) 09/05/17 Unknown Urine Protein Negative (NEGATIVE) 09/05/17 Unknown Urine Glucose (UA) Negative (NEGATIVE) 09/05/17 Unknown Urine Ketones Negative (NEGATIVE) 09/05/17 Unknown Urine Blood Negative (NEGATIVE) 09/05/17 Unknown Urine Nitrite Negative (NEGATIVE) 09/05/17 Unknown Urine Bilirubin Negative (NEGATIVE) 09/05/17 Unknown Urine Urobilinogen Negative mg/dL (0.2-1.0) 09/05/17 Unknown Ur Leukocyte Esterase Negative (NEGATIVE) 09/05/17 Unknown RPR Titer Nonreactive (NONREACTIVE) 09/06/17 06:10 lab noted Assessment: 09/07/17 11:20 withdrawal sx Plan: continue detox
[2017-09-07 14:22] VITALS: BP 116/74; PULSE 79; TEMP 98
--- NOTE | 2017-09-07 15:18 | DS ---
[facility] Detox Discharge Summary Admission Date: 09/05/17 Discharge Date: 09/07/17 - History Present History: Alcohol Dependence, Opioid Dependence Pertinent Past History: patient is alert oriented x 3 no acute distress insists to terminate detox regimen strong recommend recovery through community self help self management support seeks emergency health services if necessary - Physical Exam Results Vital Signs: Vital Signs Temperature 98.0 F 09/07/17 14:21 Pulse Rate 79 09/07/17 14:21 Respiratory Rate 18 09/07/17 14:21 Blood Pressure 116/74 09/07/17 14:21 O2 Sat by Pulse Oximetry (%) Pertinent Admission Physical Exam Findings: withdrawal sx Vital Signs Temperature 98.0 F 09/07/17 14:21 Pulse Rate 79 09/07/17 14:21 Respiratory Rate 18 09/07/17 14:21 Blood Pressure 116/74 09/07/17 14:21 O2 Sat by Pulse Oximetry (%) Laboratory Last Values WBC 7.2 K/mm3 (4.0-10.0) 09/06/17 06:10 RBC 4.39 M/mm3 (3.60-5.2) 09/06/17 06:10 Hgb 12.4 GM/dL (10.7-15.3) 09/06/17 06:10 Hct 38.0 % (32.4-45.2) 09/06/17 06:10 MCV 86.4 fl (80-96) 09/06/17 06:10 MCH 28.1 pg (25.7-33.7) 09/06/17 06:10 MCHC 32.6 g/dl (32.0-36.0) 09/06/17 06:10 RDW 14.2 % (11.6-15.6) 09/06/17 06:10 Plt Count 181 K/MM3 (134-434) 09/06/17 06:10 MPV 9.6 fl (7.5-11.1) 09/06/17 06:10 Sodium 141 mmol/L (136-145) 09/06/17 06:10 Potassium 3.9 mmol/L (3.5-5.1) 09/06/17 06:10 Chloride 107 mmol/L (98-107) 09/06/17 06:10 Carbon Dioxide 28 mmol/L (21-32) 09/06/17 06:10 Anion Gap 6 (8-16) L 09/06/17 06:10 BUN 9 mg/dL (7-18) 09/06/17 06:10 Creatinine 0.9 mg/dL (0.55-1.02) 09/06/17 06:10 Creat Clearance w eGFR > 60 (>60) 09/06/17 06:10 Random Glucose 123 mg/dL (74-106) H 09/06/17 06:10 Calcium 8.6 mg/dL (8.5-10.1) 09/06/17 06:10 Total Bilirubin 0.4 mg/dL (0.2-1.0) D 09/06/17 06:10 AST 14 U/L (15-37) L 09/06/17 06:10 ALT 24 U/L (12-78) 09/06/17 06:10 Alkaline Phosphatase 98 U/L (45-117) 09/06/17 06:10 Total Protein 7.4 g/dl (6.4-8.2) 09/06/17 06:10 Albumin 3.9 g/dl (3.4-5.0) 09/06/17 06:10 Urine Color Ltyellow 09/05/17 Unknown Urine Appearance Clear 09/05/17 Unknown Urine pH 6.0 (5.0-8.0) 09/05/17 Unknown Ur Specific [place] 1.013 (1.001-1.035) 09/05/17 Unknown Urine Protein Negative (NEGATIVE) 09/05/17 Unknown Urine Glucose (UA) Negative (NEGATIVE) 09/05/17 Unknown Urine Ketones Negative (NEGATIVE) 09/05/17 Unknown Urine Blood Negative (NEGATIVE) 09/05/17 Unknown Urine Nitrite Negative (NEGATIVE) 09/05/17 Unknown Urine Bilirubin Negative (NEGATIVE) 09/05/17 Unknown Urine Urobilinogen Negative mg/dL (0.2-1.0) 09/05/17 Unknown Ur Leukocyte Esterase Negative (NEGATIVE) 09/05/17 Unknown RPR Titer Nonreactive (NONREACTIVE) 09/06/17 06:10 lab noted - Treatment Hospital Course: Detox Protocol Followed, Responded well - Medication Discharge Medications: Ambulatory Orders Albuterol Sulfate Inhaler - [Ventolin HFA Inhaler -] 2 puff IH Q4H PRN #1 inhaler 08/27/16 - Diagnosis (1) Opioid dependence Current Visit: Yes Status: Acute Qualifiers: Substance use status: uncomplicated Qualified Code(s): F11.20 - Opioid dependence, uncomplicated (2) Alcohol dependence with uncomplicated withdrawal Current Visit: Yes Status: Acute (3) Asthma Current Visit: Yes Status: Chronic Qualifiers: Asthma severity: mild Asthma persistence: intermittent Asthma complication type: uncomplicated Qualified Code(s): J45.20 - Mild intermittent asthma, uncomplicated - AMA Did Patient Leave Against Medical Advice: Yes
[2017-09-07] MEDS ORDERED: chlordiazePOXIDE 5 MG CAPSULE PO SCH (17:00)
[2017-09-08] MEDS ORDERED: chlordiazePOXIDE HCL 10 MG CAPSULE PO SCH (17:00)
--- NOTE | 2017-09-08 21:57 | EKG ---
Test Reason : Blood Pressure : / mmHG Vent. Rate : 068 BPM Atrial Rate : 068 BPM P-R Int : 150 ms QRS Dur : 078 ms QT Int : 420 ms P-R-T Axes : 071 047 042 degrees QTc Int : 446 ms NORMAL SINUS RHYTHM POSSIBLE LEFT ATRIAL ENLARGEMENT BORDERLINE ECG WHEN COMPARED WITH ECG OF 23-AUG-2016 12:58, NO SIGNIFICANT CHANGE WAS FOUND Confirmed by CRISTINA FOWLER MD ([id number]) on 09/08/2017 9:57:04 PM Referred By: Confirmed By:CRISTINA FOWLER MD
[2017-09-09] MEDS ORDERED: METHADONE HCL 10 MG TABLET (FOR DETOX USE ONLY) PO SCH (10:00)
[2017-09-10] MEDS ORDERED: METHADONE HCL 5 MG TABLET (FOR DETOX USE ONLY) PO SCH (06:00)
== END 2017-09-07 14:55 | disposition left against medical advice (07) | DRG 770 ==
LOC: YASAS 10:16 → Y6N 15:52
PROVIDERS: ADMIT Internal Medicine; ATTEND Internal Medicine
PROC: HZ2ZZZZ Detoxification Services for Substance Abuse Treatment (ICD-10-PCS; principal; 2017-09-05)
DX: F11.23 Opioid dependence with withdrawal (principal); F10.230 Alcohol dependence with withdrawal, uncomplicated; F17.200 Nicotine dependence, unspecified, uncomplicated; J45.20 Mild intermittent asthma, uncomplicated; L30.9 Dermatitis, unspecified; Z88.8 Allergy status to other drugs, medicaments and biological substances; Z91.013 Allergy to seafood
CPT/HCPCS: 36415; 80053; 81003; 85027; 86593; 90688; 93005; 93010

== ENCOUNTER 2019-11-06 13:13 | Inpatient (IN) | payer OTHER ==
--- NOTE | 2019-11-06 13:54 | BHS.RME ---
Substance Use & Tx History - Substance Use History alcohol Substance amount: 1 pint daily Frequency of use: Daily Substance route: Oral Date of Last Use: 11/06/19 heroin Substance amount: 5 bags Frequency of use: Daily Substance route: Inhalation (ex: sniffing or snorting) Date of Last Use: 11/06/19 Opiates (Other) Substance amount: non prescribed methadone 90 mg Frequency of use: Less than 3 times per week Substance route: Oral Date of Last Use: 11/03/19 (twice a week ) - Last Treatment Date of last treatment: 09/05/17 Treatment type: Substance Use Disorder (TONY) (states she did well for over a year and relapsed in may 2019) Where was last treatment: Detox Physical/Psych/Mental Status - Behavior General Behavior: Increased activity (restlessness, agitation) Eye Contact: Normal - Cooperativeness Cooperativeness: Cooperative - Thinking Thought Processes: Logical Thought content: Future oriented - Physical Health Problems Is patient presently having any pain?: Yes (abdominal cramping from withdrawal) Does patient presently have any injuries (include location): No Does patient currently have a fever: No Is patient : No COWS - Scale Resting Pulse: 1= [place] 81-100 Sweatin= Chills/Flushing Restless Observation: 0= Sits Still Pupil Size: 0= Normal to Room Light Bone or Joint Aches: 1= Mild Discomfort Runny Nose/ Eye Tearin= Nasal Congestion GI Upset > 30mins: 2= Nausea/Diarrhea Tremor Observation: 2= Slight Tremor Visible Yawning Observation: 1= 1-2x During Session Anxiety or Irritability: 1=Feels Anxious/Irritable Goose Flesh Skin: 3=Piloerection COWS Score: 13 CIWA Nausea/Vomitin Muscle Tremors: 4-Moderate,w/Arms Extend Anxiety: 4-Mod. Anxious/Guarded Agitation: 1-Slight > Activity Paroxysmal Sweats: No Perspiration Orientation: 1-Uncertain about Date Tacttile Disturbances: 1-Very Mild Itch/Numbness Auditory Disturbances: 1-Very Mild Visual Disturbances: 0-None Headache: 2-Mild CIWA-Ar Total Score: 16
[2019-11-06 14:27] VITALS: BMI 27.0
--- NOTE | 2019-11-06 15:00 | HP ---
COWS - Scale Resting Pulse: 1= [place] 81-100 Sweatin= Chills/Flushing Restless Observation: 0= Sits Still Pupil Size: 0= Normal to Room Light Bone or Joint Aches: 1= Mild Discomfort Runny Nose/ Eye Tearin= Nasal Congestion GI Upset > 30mins: 2= Nausea/Diarrhea Tremor Observation: 2= Slight Tremor Visible Yawning Observation: 1= 1-2x During Session Anxiety or Irritability: 1=Feels Anxious/Irritable Goose Flesh Skin: 3=Piloerection COWS Score: 13 CIWA Score Nausea/Vomitin Muscle Tremors: 4-Moderate,w/Arms Extend Anxiety: 4-Mod. Anxious/Guarded Agitation: 1-Slight > Activity Paroxysmal Sweats: No Perspiration Orientation: 1-Uncertain about Date Tacttile Disturbances: 1-Very Mild Itch/Numbness Auditory Disturbances: 1-Very Mild Visual Disturbances: 0-None Headache: 2-Mild CIWA-Ar Total Score: 16 - Admission Criteria [facility]ASAS Guidelines: Admission for Medically Managed Detox: Requires at least one of the followin. CIWA greater than 12 2. Seizures within the past 24 hours 3. Delirium tremens within the past 24 hours 4. Hallucinations within the past 24 hours 5. Acute intervention needed for co occurring medical disorder 6. Acute intervention needed for co occurring psychiatric disorder 7. Severe withdrawal that cannot be handled at a lower level of care (continued vomiting, continued diarrhea, abnormal vital signs) requiring intravenous medication and/or fluids 8. Patient presents the following: CIWA greater than 12 Admission Criteria Met: Admission criteria met Admitting History and Physical - Past Medical History ...LMP: 08/31/96 - Smoking History Smoking history: Current every day smoker Have you smoked in the past 12 months: Yes Aproximately how many cigarettes per day: 4 - Alcohol/Substance Use Hx Alcohol Use: Yes Admission ROS BHS - HPI Chief Complaint: I am here for detox Allergies/Adverse Reactions: Allergies Allergy/AdvReac Type Severity Reaction Status Date / Time Penicillins Allergy Severe Difficulty Verified 11/06/19 14:24 Breathing shellfish derived Allergy Severe Difficulty Verified 11/06/19 14:24 Breathing History of Present Illness: 54 year old woman with alcohol and heroin dependence presents for detox. Her last treatment was in 2018 at this facility. Exam Limitations: No Limitations - Ebola screening Have you traveled outside of the country in the last 21 days: No Have you had contact with anyone from an Ebola affected area: No Have you been sick,other than usual withdrawal symptoms: No Do you have a fever: No - Review of Systems Constitutional: Loss of Appetite, Changes in sleep, Unintentional Wgt. Loss EENT: reports: Nose Congestion Respiratory: reports: No Symptoms reported Cardiac: reports: No Symptoms Reported GI: reports: Nausea, Poor Appetite, Poor Fluid Intake, Abdominal cramping : reports: No Symptoms Reported Musculoskeletal: reports: Back Pain, Joint Pain, Muscle Pain, Muscle Weakness Integumentary: reports: Flushing, Other (eczema plaques) Neuro: reports: Headache, Tremors Endocrine: reports: No Symptoms Reported Hematology: reports: Anemia Psychiatric: reports: No Sypmtoms Reported Other Systems: Reviewed and Negative Patient History - Patient Medical History Hx Anemia: No Hx Asthma: Yes Hx Chronic Obstructive Pulmonary Disease (COPD): No Hx Cancer: No Hx Cardiac Disorders: No Hx Congestive Heart Failure: No Hx Hypertension: No Hx Hypercholesterolemia: No Hx Pacemaker: No HX Cerebrovascular Accident: No Hx Seizures: No Hx Dementia: No Hx Diabetes: No Hx Gastrointestinal Disorders: No Hx Liver Disease: No Hx Genitourinary Disorders: No Hx Sexually Transmitted Disorders: No Hx Renal Disease (ESRD): No Hx Thyroid Disease: No Hx Human Immunodeficiency Virus (HIV): No Hx Hepatitis C: No Hx Depression: No Hx Suicide Attempt: No Hx Bipolar Disorder: No Hx Schizophrenia: No - Patient Surgical History Past Surgical History: No - PPD History Previous Implant?: Yes Documented Results: Negative w/proof Implanted On Prior [facility] Admission?: Yes Date: 08/25/16 Results: 0MM PPD to be Administered?: Yes - Reproductive History Patient is a Female of Child Bearing Age (11 -55 yrs old): Yes Last Menstrual Period: 08/31/96 Patient : No - Smoking Cessation Smoking history: Current every day smoker Have you smoked in the past 12 months: Yes Aproximately how many cigarettes per day: 4 Hx Chewing Tobacco Use: No Initiated information on smoking cessation: Yes 'Breaking Loose' booklet given: 11/06/19 - Substances abused Alcohol Substance route: Oral Frequency: Daily Amount used: liquor - 1pts Age of first use: 15 Date of last use: 11/06/19 Heroin Substance route: Inhalation Frequency: Daily Amount used: 5BAGS Age of first use: 18 Date of last use: 11/06/19 Admission Physical Exam [facility] - Vital Signs Vital Signs: Vital Signs - 24 hr 11/06/19 14:24 Temperature 97.6 F Pulse Rate 83 Respiratory 17 Rate Blood Pressure 108/74 - Physical General Appearance: Yes: No Apparent Distress HEENTM: Yes: Hearing grossly Normal, Normocephalic, Normal Voice Respiratory: Yes: Chest Non-Tender, Lungs Clear, Normal Breath Sounds, No Respiratory Distress, No Accessory Muscle Use Neck: Yes: No masses,lesions,Nodules, Supple Breast: Yes: Breast Exam Deferred Cardiology: Yes: Regular Rhythm, Regular Rate, S1, S2 Abdominal: Yes: Normal Bowel Sounds, Soft Genitourinary: Yes: Within Normal Limits Back: Yes: Normal Inspection Musculoskeletal: Yes: full range of Motion, Muscle weakness Extremities: Yes: Non-Tender, Tremors Neurological: Yes: brick catcher II-XII NML intact, Fully Oriented, Alert, Normal Mood/Affect, Normal Response Integumentary: Yes: Clammy, Other (eczema plaques on lower extremities) Lymphatic: Yes: Within Normal Limits - Diagnostic (1) Alcohol dependence with uncomplicated withdrawal Current Visit: Yes Status: Acute (2) Opioid dependence Current Visit: Yes Status: Acute Qualifiers: Substance use status: uncomplicated Qualified Code(s): F11.20 - Opioid dependence, uncomplicated (3) Asthma Current Visit: No Status: Chronic Qualifiers: Asthma severity: mild Asthma persistence: intermittent Asthma complication type: uncomplicated Qualified Code(s): J45.20 - Mild intermittent asthma, uncomplicated (4) Eczema Current Visit: No Status: Chronic Cleared for Admission [facility] - Detox or Rehab [facility] Level of Care: Medically Managed Detox Regimen/Protocol: Methadone/Librium Claeared for Rehab Admission: No Breathalyzer - Breathalyzer Breathalyzer: 0 Urine Drug Screen - Test Device Lot number: [id number] Expiration date: 04/17/21 - Control Is test valid?: Yes - Results Drug screen NEGATIVE: No Urine drug screen results: LUIS ENRIQUE-Cocaine, FEN-Fentanyl, MOP-Opiates, MTD- Methadone, BZO-Benzodiazepines Inpatient Rehab Admission - Rehab Decision to Admit Inpatient rehab admission?: No
[2019-11-06] MEDS ORDERED: METHADONE HCL 10 MG TABLET (FOR DETOX USE ONLY) PO ONE (15:03)
[2019-11-06] MEDS ORDERED: MAG HYDROX/AL HYDROX/SIMETH 30 ML UNIT-DOSE CUP PO PRN (15:03)
[2019-11-06] MEDS ORDERED: ACETAMINOPHEN 325 MG TABLET (FP) PO PRN ×2 (15:03)
[2019-11-06] MEDS ORDERED: NICOTINE POLACRILEX 2 MG GUM BUC PRN (15:03)
[2019-11-06] MEDS ORDERED: chlordiazePOXIDE HCL 10 MG CAPSULE PO PRN (15:03)
[2019-11-06] MEDS ORDERED: NALOXONE HCL 0.4 MG/ML VIAL IM PRN (15:03)
[2019-11-06] MEDS ORDERED: MENTHOL/PHENOL 1 EACH UD MM PRN (15:03)
[2019-11-06] MEDS ORDERED: MAGNESIUM CITRATE 300 ML BOTTLE PO PRN (15:03)
[2019-11-06] MEDS ORDERED: cloNIDine HCL 0.1 MG TABLET PO PRN (15:03)
[2019-11-06] MEDS ORDERED: MAGNESIUM HYDROX 2400MG/30ML ORAL SUSPENSION 30 ML CUP PO PRN (15:03)
[2019-11-06] MEDS ORDERED: chlordiazePOXIDE HCL 25 MG CAPSULE PO ONE (15:03)
[2019-11-06] MEDS ORDERED: BISMUTH SUBSALICYLATE 524 MG/30 ML UD PO PRN (15:03)
[2019-11-06] MEDS ORDERED: IBUPROFEN 400 MG TABLET (FP) PO PRN (15:03)
[2019-11-06] MEDS ORDERED: ALBUTEROL SO4 HFA INHALER IH PRN (15:05)
[2019-11-06] MEDS: METHOCARBAMOL 500 MG TABLET PO PRN (22:43)
[2019-11-06] MEDS: THIAMINE HCL 100 MG TABLET (FP) PO SCH (22:43)
[2019-11-06] MEDS: MELATONIN 5 MG TABLETS PO SCH (22:44)
[2019-11-06] MEDS: chlordiazePOXIDE HCL 25 MG CAPSULE PO SCH (22:44)
[2019-11-07] MEDS: chlordiazePOXIDE HCL 25 MG CAPSULE PO SCH ×3 (06:18→22:17)
[2019-11-07] MEDS ORDERED: METHADONE HCL 5 MG TABLET (FOR DETOX USE ONLY) PO ONE (10:00)
[2019-11-07] MEDS: NICOTINE 7 MG/24 HOURS TOPICAL PATCH TD SCH (10:19)
[2019-11-07] MEDS: PRENATAL VITAMINS W/ FOLIC ACID TABLET (FP) PO SCH (10:19)
--- NOTE | 2019-11-07 12:14 | PN ---
[facility] CIWA - CIWA Score Nausea/Vomitin-No Nausea/No Vomiting Muscle Tremors: None Anxiety: 3 Agitation: 0-Normal Activity Paroxysmal Sweats: 3 Orientation: 0-Oriented Tacttile Disturbances: 0-None Auditory Disturbances: 0-None Visual Disturbances: 0-None Headache: 2-Mild CIWA-Ar Total Score: 8 BHS COWS - Scale Resting Pulse: 0= [place] 80 or Below Sweatin= Chills/Flushing Restless Observation: 1= Difficult to Sit Still Pupil Size: 0= Normal to Room Light Bone or Joint Aches: 2= Severe Diffuse Aches Runny Nose/ Eye Tearin= None GI Upset > 30mins: 0= None Tremor Observation of Outstretched Hands: 0= None Yawning Observation: 2= >3x During Session Anxiety or Irritability: 2=Irritable/Anxious Goose Flesh Skin: 0=Smooth Skin COWS Score: 8 S Progress Note (SOAP) Subjective: c/o anxiety, sweats, headache, and muscle aches. Objective: 11/07/19 12:13 Vital Signs 11/07/19 11/07/19 05:13 09:10 Temperature 97.5 F L 98.7 F Pulse Rate 59 L 72 Respiratory 16 18 Rate Blood Pressure 94/59 L 111/53 L O2 Sat by Pulse 97 Oximetry (%) Labs pending. Assessment: 11/07/19 12:14 AOX3, in no acute respiratory distress. Full ROM, ambulating in the unit. Withdrawal symptoms. Plan: continue detox.
[2019-11-07 18:14] LABS: HEMATOCRIT 37.4 % (32.4-45.2); HEMOGLOBIN 12.6 GM/dL (10.7-15.3); MCHC 33.6 g/dl (32.0-36.0); MEAN CELL VOLUME 86.3 fl (80-96); MEAN PLT VOLUME 9.3 fl (7.5-11.1); PLATELET COUNT 175 K/MM3 (134-434); RBC 4.33 M/mm3 (3.60-5.2); WHITE BLOOD COUNT 6.5 K/mm3 (4.0-10.0)
[2019-11-07 18:25] LABS: ALBUMIN 3.4 g/dl (3.4-5.0); BILIRUBIN,TOTAL 0.3 mg/dL (0.2-1); BLOOD UREA NITROGEN 10.6 mg/dL (7-18); CALCIUM 8.5 mg/dL (8.5-10.1); CREATININE 0.9 mg/dL (0.55-1.3); POTASSIUM 3.6 mmol/L (3.5-5.1); TOT PROT 6.6 g/dl (6.4-8.2)
[2019-11-07] MEDS: THIAMINE HCL 100 MG TABLET (FP) PO SCH (22:17)
[2019-11-07] MEDS: METHOCARBAMOL 500 MG TABLET PO PRN (22:17)
[2019-11-07] MEDS: MELATONIN 5 MG TABLETS PO SCH (22:18)
[2019-11-08] MEDS ORDERED: chlordiazePOXIDE 5 MG CAPSULE PO SCH (05:00)
--- NOTE | 2019-11-08 09:13 | PN ---
S Progress Note Note: pt states she wants to leave because she rather be home and go to rehab than to be here. Pt is showing s/s of withdrawals and was encouraged to stay to complete her detox to prevent relapse, seizures, DTs, OD and or loss, pt chose to sign out.
--- NOTE | 2019-11-08 09:15 | DS ---
[facility] Detox Discharge Summary Admission Date: 11/06/19 - History Present History: Alcohol Dependence, Cocaine Dependence, Opioid Dependence - Physical Exam Results Vital Signs: Vital Signs Temperature 98.4 F 11/08/19 06:11 Pulse Rate 66 11/08/19 06:11 Respiratory Rate 18 11/08/19 06:11 Blood Pressure 96/65 11/08/19 06:11 O2 Sat by Pulse Oximetry (%) 97 11/08/19 06:11 Pertinent Admission Physical Exam Findings: Vital Signs Temperature 98.4 F 11/08/19 06:11 Pulse Rate 66 11/08/19 06:11 Respiratory Rate 18 11/08/19 06:11 Blood Pressure 96/65 11/08/19 06:11 O2 Sat by Pulse Oximetry (%) 97 11/08/19 06:11 Laboratory Tests 11/07/19 11/07/19 11/07/19 07:20 07:20 07:20 WBC 6.5 RBC 4.33 Hgb 12.6 Hct 37.4 MCV 86.3 MCH 29.0 MCHC 33.6 RDW 14.0 Plt Count 175 MPV 9.3 Sodium 140 Potassium 3.6 Chloride 105 Carbon Dioxide 29 Anion Gap 6 L BUN 10.6 Creatinine 0.9 Est GFR (CKD-EPI)AfAm 83.43 Est GFR (CKD-EPI)NonAf 71.98 Random Glucose 99 Calcium 8.5 Total Bilirubin 0.3 AST 21 ALT 33 Alkaline Phosphatase 90 Total Protein 6.6 Albumin 3.4 RPR Titer HIV Ag/Ab Combo Qual Negative 11/07/19 07:20 WBC RBC Hgb Hct MCV MCH MCHC RDW Plt Count MPV Sodium Potassium Chloride Carbon Dioxide Anion Gap BUN Creatinine Est GFR (CKD-EPI)AfAm Est GFR (CKD-EPI)NonAf Random Glucose Calcium Total Bilirubin AST ALT Alkaline Phosphatase Total Protein Albumin RPR Titer Nonreactive HIV Ag/Ab Combo Qual aaox3 ambulating pt signed out AMA. - Treatment Hospital Course: Rehab Referral Accepted - Medication Discharge Medications: Ambulatory Orders Albuterol Sulfate Inhaler - [Ventolin HFA Inhaler -] 2 puff IH Q4H PRN #1 inhal er 08/27/16 - Diagnosis (1) Alcohol dependence with uncomplicated withdrawal Current Visit: Yes Status: Chronic (2) Opioid dependence Current Visit: Yes Status: Chronic Qualifiers: Substance use status: uncomplicated Qualified Code(s): F11.20 - Opioid dependence, uncomplicated (3) Lichen planus Current Visit: No Status: Acute (4) Asthma Current Visit: Yes Status: Chronic Qualifiers: Asthma severity: mild Asthma persistence: intermittent Asthma complication type: uncomplicated Qualified Code(s): J45.20 - Mild intermittent asthma, uncomplicated (5) Cocaine dependence Current Visit: Yes Status: Chronic Qualifiers: Complication of substance-induced condition: uncomplicated (6) Eczema Current Visit: No Status: Chronic Qualifiers: Eczema type: unspecified Qualified Code(s): L30.9 - Dermatitis, unspecified - AMA Did Patient Leave Against Medical Advice: Yes
[2019-11-08] MEDS ORDERED: METHADONE HCL 10 MG TABLET (FOR DETOX USE ONLY) PO ONE (10:00)
[2019-11-08 10:31] VITALS: BP 113/63; PULSE 69; TEMP 94.6
--- NOTE | 2019-11-08 10:32 | EKG ---
Test Reason : Blood Pressure : / mmHG Vent. Rate : 076 BPM Atrial Rate : 076 BPM P-R Int : 144 ms QRS Dur : 080 ms QT Int : 374 ms P-R-T Axes : 070 035 033 degrees QTc Int : 420 ms NORMAL SINUS RHYTHM RIGHT ATRIAL ENLARGEMENT BORDERLINE ECG WHEN COMPARED WITH ECG OF 05-SEP-2017 17:56, NO SIGNIFICANT CHANGE WAS FOUND Confirmed by Yusuf Rocha ([id number]) on 11/08/2019 10:31:56 AM Referred By: SILVA ROSS Confirmed By:Yusuf Rocha
[2019-11-08] MEDS: NICOTINE 7 MG/24 HOURS TOPICAL PATCH TD SCH (11:00)
[2019-11-08] MEDS: PRENATAL VITAMINS W/ FOLIC ACID TABLET (FP) PO SCH (11:01)
[2019-11-09] MEDS ORDERED: chlordiazePOXIDE HCL 10 MG CAPSULE PO PRN
[2019-11-09] MEDS ORDERED: chlordiazePOXIDE HCL 10 MG CAPSULE PO SCH (05:00)
[2019-11-09] MEDS ORDERED: METHADONE HCL 5 MG TABLET (FOR DETOX USE ONLY) PO ONE (06:00)
[2019-11-10] MEDS ORDERED: chlordiazePOXIDE HCL 10 MG CAPSULE PO ONE (05:00)
== END 2019-11-08 09:54 | disposition left against medical advice (07) | DRG 770 ==
LOC: YASAS 13:13 → Y6N 15:08
PROVIDERS: ADMIT Allergy & Immunology; ATTEND Allergy & Immunology
PROC: HZ2ZZZZ Detoxification Services for Substance Abuse Treatment (ICD-10-PCS; principal; 2019-11-06)
DX: F10.230 Alcohol dependence with withdrawal, uncomplicated (principal); F11.20 Opioid dependence, uncomplicated; F14.20 Cocaine dependence, uncomplicated; F17.210 Nicotine dependence, cigarettes, uncomplicated; J45.20 Mild intermittent asthma, uncomplicated; L30.9 Dermatitis, unspecified; L43.9 Lichen planus, unspecified; Z88.0 Allergy status to penicillin; Z91.013 Allergy to seafood
CPT/HCPCS: 36415; 80053; 85027; 86593; 87389; 93005; 93010

== ENCOUNTER 2020-06-20 11:03 | Inpatient (IN) | payer OTHER ==
[2020-06-20] MEDS ORDERED: FLU VACCINE (FLULAVAL) PF 60 MCG/0.5 ML SYRINGE 2020-2021 IM ONE (12:11)
[2020-06-20] MEDS ORDERED: guaiFENesin 200 MG/10 ML 10 ML UNIT-DOSE CUPS PO PRN (12:35)
[2020-06-20] MEDS ORDERED: MENTHOL/PHENOL 1 EACH UD MM PRN (12:35)
[2020-06-20] MEDS ORDERED: LOPERAMIDE HCL 2 MG CAPSULE PO PRN (12:35)
[2020-06-20] MEDS ORDERED: MAGNESIUM CITRATE 300 ML BOTTLE PO PRN (12:35)
[2020-06-20] MEDS ORDERED: IBUPROFEN 400 MG TABLET (FP) PO PRN (12:35)
[2020-06-20] MEDS ORDERED: P-EPHED 60MG/TRIPROLIDI 2.5MG TABLET PO PRN (12:35)
[2020-06-20] MEDS ORDERED: MAGNESIUM HYDROX 2400MG/30ML ORAL SUSPENSION 30 ML CUP PO PRN (12:35)
[2020-06-20] MEDS ORDERED: MAG HYDROX/AL HYDROX/SIMETH 30 ML UNIT-DOSE CUP PO PRN (12:35)
[2020-06-20] MEDS ORDERED: hydrOXYzine PAMOATE 25 MG CAPSULE (FP) PO PRN (12:35)
[2020-06-20] MEDS ORDERED: ALBUTEROL SO4 HFA INHALER IH PRN (12:45)
[2020-06-20] MEDS: METHOCARBAMOL 500 MG TABLET PO SCH ×3 (13:15→21:27)
[2020-06-20] MEDS: THIAMINE HCL 100 MG TABLET (FP) PO SCH (21:26)
[2020-06-20] MEDS: MELATONIN 5 MG TABLETS PO SCH (21:26)
[2020-06-21] MEDS ORDERED: METHADONE HCL 10 MG TABLET PO SCH (06:00)
[2020-06-21] MEDS ORDERED: METHADONE HCL 40 MG DISPERSABLE TABLET ONE (06:33)
[2020-06-21] MEDS ORDERED: METHADONE HCL 10 MG TABLET ONE (06:33)
[2020-06-21] MEDS: METHADONE 40 MG, METHADONE 20 MG PO SCH (06:38)
[2020-06-21] MEDS: NICOTINE 7 MG/24 HOURS TOPICAL PATCH TD SCH (09:25)
[2020-06-21] MEDS: METHOCARBAMOL 500 MG TABLET PO SCH ×4 (09:25→21:00)
[2020-06-21] MEDS: PRENATAL VITAMINS W/ FOLIC ACID TABLET (FP) PO SCH (09:25)
[2020-06-21] MEDS ORDERED: PT OWN MED DRAWER 7, Y5N ONE ×2 (09:55→20:58)
[2020-06-21] MEDS ORDERED: FLU VACCINE (FLULAVAL) PF 60 MCG/0.5 ML SYRINGE 2020-2021 IM ONE (12:00)
[2020-06-21] MEDS: MELATONIN 5 MG TABLETS PO SCH (21:00)
[2020-06-21] MEDS: THIAMINE HCL 100 MG TABLET (FP) PO SCH (21:00)
[2020-06-22] MEDS ORDERED: METHADONE HCL 40 MG DISPERSABLE TABLET ONE (03:15)
[2020-06-22] MEDS ORDERED: METHADONE HCL 10 MG TABLET ONE (03:15)
[2020-06-22] MEDS: METHADONE 40 MG, METHADONE 20 MG PO SCH (06:37)
[2020-06-22] MEDS: METHOCARBAMOL 500 MG TABLET PO SCH ×4 (09:45→21:05)
[2020-06-22] MEDS: NICOTINE 7 MG/24 HOURS TOPICAL PATCH TD SCH (09:45)
[2020-06-22] MEDS: PRENATAL VITAMINS W/ FOLIC ACID TABLET (FP) PO SCH (09:45)
[2020-06-22] MEDS: NICOTINE POLACRILEX 2 MG GUM BUC PRN (09:47)
[2020-06-22] MEDS: THIAMINE HCL 100 MG TABLET (FP) PO SCH (21:05)
[2020-06-22] MEDS: MELATONIN 5 MG TABLETS PO SCH (21:05)
[2020-06-23] MEDS ORDERED: METHADONE HCL 10 MG TABLET ONE (05:23)
[2020-06-23] MEDS ORDERED: METHADONE HCL 40 MG DISPERSABLE TABLET ONE (05:24)
[2020-06-23] MEDS: METHADONE 40 MG, METHADONE 20 MG PO SCH (06:14)
[2020-06-23] MEDS: NICOTINE 7 MG/24 HOURS TOPICAL PATCH TD SCH (09:53)
[2020-06-23] MEDS: METHOCARBAMOL 500 MG TABLET PO SCH ×4 (09:53→21:28)
[2020-06-23] MEDS: PRENATAL VITAMINS W/ FOLIC ACID TABLET (FP) PO SCH (09:53)
[2020-06-23] MEDS: ACETAMINOPHEN 325 MG TABLET (FP) PO PRN (09:55)
[2020-06-23] MEDS: NICOTINE POLACRILEX 2 MG GUM BUC PRN (09:57)
[2020-06-23] MEDS: MELATONIN 5 MG TABLETS PO SCH (21:28)
[2020-06-23] MEDS: THIAMINE HCL 100 MG TABLET (FP) PO SCH (21:28)
[2020-06-24] MEDS ORDERED: METHADONE HCL 10 MG TABLET ONE (05:20)
[2020-06-24] MEDS ORDERED: METHADONE HCL 40 MG DISPERSABLE TABLET ONE (05:20)
[2020-06-24] MEDS: METHADONE 40 MG, METHADONE 20 MG PO SCH (06:42)
[2020-06-24] MEDS: METHOCARBAMOL 500 MG TABLET PO SCH ×4 (09:20→21:17)
[2020-06-24] MEDS: PRENATAL VITAMINS W/ FOLIC ACID TABLET (FP) PO SCH (09:20)
[2020-06-24] MEDS: NICOTINE 7 MG/24 HOURS TOPICAL PATCH TD SCH (09:21)
[2020-06-24] MEDS: NICOTINE POLACRILEX 2 MG GUM BUC PRN (09:21)
[2020-06-24] MEDS: MELATONIN 5 MG TABLETS PO SCH (21:18)
[2020-06-24] MEDS: THIAMINE HCL 100 MG TABLET (FP) PO SCH (21:18)
[2020-06-25] MEDS ORDERED: METHADONE HCL 10 MG TABLET ONE (05:21)
[2020-06-25] MEDS ORDERED: METHADONE HCL 40 MG DISPERSABLE TABLET ONE (05:22)
[2020-06-25] MEDS: METHADONE 40 MG, METHADONE 20 MG PO SCH (06:36)
[2020-06-25] MEDS: METHOCARBAMOL 500 MG TABLET PO SCH ×4 (09:49→21:07)
[2020-06-25] MEDS: NICOTINE 7 MG/24 HOURS TOPICAL PATCH TD SCH (09:50)
[2020-06-25] MEDS: PRENATAL VITAMINS W/ FOLIC ACID TABLET (FP) PO SCH (09:50)
[2020-06-25] MEDS: NICOTINE POLACRILEX 2 MG GUM BUC PRN (09:51)
[2020-06-25] MEDS: ACETAMINOPHEN 325 MG TABLET (FP) PO PRN (13:43)
[2020-06-25] MEDS: THIAMINE HCL 100 MG TABLET (FP) PO SCH (21:07)
[2020-06-25] MEDS: MELATONIN 5 MG TABLETS PO SCH (21:08)
[2020-06-26] MEDS ORDERED: METHADONE HCL 40 MG DISPERSABLE TABLET ONE (03:18)
[2020-06-26] MEDS ORDERED: METHADONE HCL 10 MG TABLET ONE (03:18)
[2020-06-26] MEDS: METHADONE 40 MG, METHADONE 20 MG PO SCH (06:29)
[2020-06-26] MEDS: METHOCARBAMOL 500 MG TABLET PO SCH ×4 (09:41→21:38)
[2020-06-26] MEDS: NICOTINE 7 MG/24 HOURS TOPICAL PATCH TD SCH (09:41)
[2020-06-26] MEDS: PRENATAL VITAMINS W/ FOLIC ACID TABLET (FP) PO SCH (09:41)
[2020-06-26] MEDS: MELATONIN 5 MG TABLETS PO SCH (21:38)
[2020-06-26] MEDS: THIAMINE HCL 100 MG TABLET (FP) PO SCH (21:38)
[2020-06-26] MEDS ORDERED: PT OWN MED DRAWER 7, Y5N ONE (21:53)
[2020-06-27] MEDS ORDERED: METHADONE HCL 10 MG TABLET PO SCH (06:00)
[2020-06-27] MEDS ORDERED: METHADONE HCL 40 MG DISPERSABLE TABLET ONE (06:26)
[2020-06-27] MEDS ORDERED: METHADONE HCL 10 MG TABLET ONE (06:26)
[2020-06-27] MEDS: METHADONE 40 MG, METHADONE 20 MG PO SCH (06:44)
[2020-06-27] MEDS: METHOCARBAMOL 500 MG TABLET PO SCH ×4 (09:51→21:04)
[2020-06-27] MEDS: PRENATAL VITAMINS W/ FOLIC ACID TABLET (FP) PO SCH (09:52)
[2020-06-27] MEDS: NICOTINE 7 MG/24 HOURS TOPICAL PATCH TD SCH (09:52)
[2020-06-27] MEDS: THIAMINE HCL 100 MG TABLET (FP) PO SCH (21:04)
[2020-06-27] MEDS: MELATONIN 5 MG TABLETS PO SCH (21:04)
[2020-06-28] MEDS ORDERED: METHADONE HCL 10 MG TABLET ONE (03:40)
[2020-06-28] MEDS ORDERED: METHADONE HCL 40 MG DISPERSABLE TABLET ONE (03:40)
[2020-06-28] MEDS: METHADONE 40 MG, METHADONE 20 MG PO SCH (06:20)
[2020-06-28] MEDS: NICOTINE 7 MG/24 HOURS TOPICAL PATCH TD SCH (09:37)
[2020-06-28] MEDS: PRENATAL VITAMINS W/ FOLIC ACID TABLET (FP) PO SCH (09:37)
[2020-06-28] MEDS: METHOCARBAMOL 500 MG TABLET PO SCH ×4 (09:37→21:20)
[2020-06-28] MEDS: NICOTINE POLACRILEX 2 MG GUM BUC PRN (09:38)
[2020-06-28] MEDS: THIAMINE HCL 100 MG TABLET (FP) PO SCH (21:20)
[2020-06-28] MEDS: MELATONIN 5 MG TABLETS PO SCH (21:20)
[2020-06-29] MEDS ORDERED: METHADONE HCL 40 MG DISPERSABLE TABLET ONE (03:20)
[2020-06-29] MEDS ORDERED: METHADONE HCL 10 MG TABLET ONE (03:20)
[2020-06-29] MEDS: METHADONE 40 MG, METHADONE 20 MG PO SCH (06:17)
[2020-06-29 06:53] VITALS: TEMP 97.3
[2020-06-29] MEDS: NICOTINE 7 MG/24 HOURS TOPICAL PATCH TD SCH (09:05)
[2020-06-29] MEDS: PRENATAL VITAMINS W/ FOLIC ACID TABLET (FP) PO SCH (09:05)
[2020-06-29] MEDS: METHOCARBAMOL 500 MG TABLET PO SCH (09:06)
[2020-06-29 09:09] VITALS: BP 156/80; PULSE 84
== END 2020-06-29 09:22 | disposition home or self-care (01) | DRG 772 ==
LOC: YASAS 11:03 → Y3E 11:06
PROVIDERS: ADMIT Allergy & Immunology; ATTEND Allergy & Immunology
PROC: HZ42ZZZ Group Counseling for Substance Abuse Treatment, Cognitive-Behavioral (ICD-10-PCS; principal; 2020-06-20)
DX: F10.20 Alcohol dependence, uncomplicated (principal); F11.20 Opioid dependence, uncomplicated; F14.20 Cocaine dependence, uncomplicated; F39 Unspecified mood [affective] disorder; J45.909 Unspecified asthma, uncomplicated; L30.9 Dermatitis, unspecified; Z88.0 Allergy status to penicillin; Z91.013 Allergy to seafood
CPT/HCPCS: G0008; Q2036